=== PATIENT | male | born 1935 | race Caucasian/White ===

== ENCOUNTER → 2018-12-08 | Outpatient (CLI) | payer MEDICARE, OTHER | END | disposition home or self-care (01) | LOC: RAD 08:54 | PROVIDERS: ATTEND Family Medicine | DX: R13.10 Dysphagia, unspecified (principal) | CPT/HCPCS: 74230 ==

== ENCOUNTER 2021-02-07 06:29 | Emergency (ER) | payer MEDICARE ==
[~2021-02-07] VITALS: Ht 195.6 cm; Wt 68.0 kg
--- NOTE | 2021-02-07 07:03 | NUR ---
TOOK REPORT FROM Iraida Clemons RN, ASSUME CARE AT THIS TIME.
[2021-02-07 07:09] LABS: BASOPHILS % (AUTO) 0 % (0-1); EOSINOPHILS % (AUTO) 1 % (1-7); LYMPHOCYTES % (AUTO) 10 % (22-44); MEAN CORPUSCULAR HEMOGLOBIN 31.3 pg (27.5-34.5); MEAN CORPUSCULAR HGB CONC 34.2 g/dL (33.2-36.2); MEAN PLATELET VOLUME 8.1 fL (7.4-10.4); MONOCYTES % (AUTO) 4 % (2-9); NEUTROPHILS % (AUTO) 86 % (42-75); PLATELET COUNT 187 x10^3/uL (130-400); RED BLOOD COUNT 4.96 x10^6/uL (4.38-5.82); RED CELL DISTRIBUTION WIDTH 13.6 % (9.4-14.8)
[2021-02-07 07:13] LABS: MICROSCOPIC INDICATED
[2021-02-07 07:17] LABS: ANION GAP 8 mmol/L (5-15); CALCIUM 10.5 mg/dL (8.5-10.1); CHLORIDE 103 mmol/L (98-107); CREATININE 1.01 mg/dL (0.7-1.3)
[2021-02-07 07:52] VITALS: BP 106/74
--- NOTE | 2021-02-07 07:53 | NUR ---
PT CALM IN BED RESTING RR EVEN AND UNLABORED. UA BAG 700ML
== END 2021-02-07 09:05 | disposition home or self-care (01) ==
LOC: ED 09:00
DX: N40.1 Benign prostatic hyperplasia with lower urinary tract symptoms (principal); R33.8 Other retention of urine
CPT/HCPCS: 36415; 51702; 76770; 80048; 81001; 85025; 99284

== ENCOUNTER 2021-02-14 20:28 | Emergency (ER) | payer MEDICARE ==
[~2021-02-14] VITALS: Ht 170.2 cm; Wt 63.9 kg
[2021-02-14] MEDS ORDERED: SODIUM CHLORIDE 0.9% 1,000ML IVBOLUS ONE (21:00)
[2021-02-14] MEDS ORDERED: SODIUM CHLORIDE FLUSH 10ML SYR IVF ONE (21:00)
[2021-02-14 21:42] LABS: BASOPHILS % (AUTO) 0 % (0-1); EOSINOPHILS % (AUTO) 5 % (1-7); LYMPHOCYTES % (AUTO) 20 % (22-44); MEAN CORPUSCULAR HEMOGLOBIN 31.3 pg (27.5-34.5); MEAN CORPUSCULAR HGB CONC 34.3 g/dL (33.2-36.2); MONOCYTES % (AUTO) 8 % (2-9); NEUTROPHILS % (AUTO) 68 % (42-75); PLATELET COUNT 190 x10^3/uL (130-400); RED BLOOD COUNT 4.54 x10^6/uL (4.38-5.82); RED CELL DISTRIBUTION WIDTH 13.6 % (9.4-14.8)
--- NOTE | 2021-02-14 21:45 | NUR ---
"BLEEDING FROM MY [place]" HAD RENDON INSERTED TWO DAYS AGO. NOW HAS BLOODY URINE OUTPUT irrigated w/out difficulty patient already on flomax erp to bedside-plan to removed rendon per patient's preference Removed without difficulty
[2021-02-14 21:51] LABS: INTERNATIONAL NORMALIZED RATIO 0.98 (0.93-1.1); PROTHROMBIN TIME 10.5 Seconds (9.6-11.5)
[2021-02-14 21:52] LABS: ALBUMIN 3.2 g/dL (3.4-5.0); ANION GAP 4 mmol/L (5-15); CALCIUM 9.5 mg/dL (8.5-10.1); CHLORIDE 105 mmol/L (98-107)
[2021-02-14 21:56] LABS: ALANINE AMINOTRANSFERASE 19 U/L (12-78); ALKALINE PHOSPHATASE 85 U/L (45-117); BILIRUBIN,TOTAL 0.5 mg/dL (0.2-1.0); CREATININE 1.13 mg/dL (0.7-1.3); TOTAL PROTEIN 7.5 g/dL (6.4-8.2)
[2021-02-14 22:28] VITALS: BP 130/77
--- NOTE | 2021-02-14 22:28 | NUR ---
PATIENT VOIDED 175ML REVIEWED POC, SXS TO WATCH FOR, NECCESITY OF CLOSE OBSERVATION/F/U
== END 2021-02-14 22:30 | disposition home or self-care (01) ==
LOC: ED 21:33
DX: N40.0 Benign prostatic hyperplasia without lower urinary tract symptoms (principal); R31.0 Gross hematuria
CPT/HCPCS: 36415; 80053; 85025; 85610; 85730; 99283